=== PATIENT | female | born 1960 | race Hispanic/Latino ===

== ENCOUNTER 2016-11-11 13:58 | Emergency (ER) | payer MEDICARE ==
[2016-11-11 13:58] VITALS: BMI 28.1
[2016-11-11 14:07] VITALS: BP 140/82; PULSE 90; RESP 18; TEMP 98.8; O2SAT 99
--- NOTE | 2016-11-11 14:47 | ED PDOC ---
HPI: Psych/Substance Abuse Time Seen by Provider: 11/11/16 14:22 Chief Complaint (Nursing): Psychiatric Evaluation Chief Complaint (Provider): Psychiatric Evaluation History Per: Patient History/Exam Limitations: no limitations Onset/Duration Of Symptoms: Hrs Current Symptoms Are (Timing): Still Present Additional Complaint(s): 55 y/o female who was brought to the emergency department via EMS under [place] Police custody. As per history from Police, patient went to the Police Department to file a noise complaint but when told she was not able to file the complaint, she became angry and kicked the [place] [employer]. Denies abdominal pain , auditory hallucinations, suicidal/homicidal ideation or any further complaints. Past Medical History Reviewed: Historical Data, Nursing Documentation, Vital Signs Vital Signs: Last Vital Signs Temp 98.8 F 11/11/16 14:05 Pulse 90 11/11/16 14:05 Resp 18 11/11/16 14:05 BP 140/82 11/11/16 14:05 Pulse Ox 99 11/11/16 14:05 - Medical History PMH: Anxiety, Depression Denies: Diabetes (pre-diabetes), Hepatitis, HIV, HTN, Seizures, Sexually Transmitted Disease - Surgical History Surgical History: No Surg Hx - Family History Family History: States: Unknown Family Hx - Immunization History Hx Tetanus Toxoid Vaccination: No Hx Influenza Vaccination: No Hx Pneumococcal Vaccination: No - Home Medications Home Medications: Ambulatory Orders Medication Instructions Recorded Benadryl 50 mg HS 04/08/14 Celexa 20 mg DAILY 04/08/14 Ondansetron ODT [Zofran ODT] 4 mg PO Q6 PRN #10 odt 05/23/16 - Allergies Allergies/Adverse Reactions: Allergies Allergy/AdvReac Type Severity Reaction Status Date / Time No Known Allergies Allergy Verified 03/06/16 17:15 Review of Systems ROS Statement: Except As Marked, All Systems Reviewed And Found Negative Gastrointestinal: Negative for: Abdominal Pain Psych: Negative for: Suicidal ideation (or homicidal), Other (auditory hallucinations) Physical Exam - Reviewed Nursing Documentation Reviewed: Yes Vital Signs Reviewed: Yes - Physical Exam Appears: Positive for: Non-toxic, No Acute Distress Head Exam: Positive for: ATRAUMATIC, NORMOCEPHALIC Skin: Positive for: Normal Color, Warm, Dry Eye Exam: Positive for: Normal appearance. Negative for: Conjunctival injection Neck: Positive for: Normal, Supple Cardiovascular/Chest: Positive for: Regular Rate, Rhythm. Negative for: Murmur Respiratory: Positive for: Normal Breath Sounds. Negative for: Accessory Muscle Use, Respiratory Distress Gastrointestinal/Abdominal: Positive for: Normal Exam, Soft. Negative for: Tenderness Extremity: Positive for: Normal ROM. Negative for: Pedal Edema, Swelling Neurologic/Psych: Positive for: Alert, Oriented - ECG O2 Sat by Pulse Oximetry: 99 (RA) Pulse Ox Interpretation: Normal Medical Decision Making Medical Decision Making: Time: 14:22 Initial plan: --Medical Clearance Time: 14:41 Upon provider reevaluation patient is medically stable, and requires no further treatment in the ED at this time. Patient will be discharged home. Counseling was provided and all questions were answered. Scribe Attestation: Documented by Michelle Jeffries, acting as a scribe for Angie Portillo PA-C. Provider Scribe Attestation: All medical record entries made by the Scribe were at my direction and personally dictated by me. I have reviewed the chart and agree that the record accurately reflects my personal performance of the history, physical exam, medical decision making, and the department course for this patient. I have also personally directed, reviewed, and agree with the discharge instructions and disposition. Disposition - Clinical Impression Clinical Impression: Schizophrenia - Disposition Referrals: [facility] [Outside] Disposition: Discharged/Transfer to Law Enforcement Disposition Time: 14:57 Condition: STABLE Additional Instructions: Pt is medically and psychiatrically cleared for incarceration. Instructions: Schizophrenia (ED)
== END 2016-11-11 14:58 ==
LOC: H.ER 13:58
DX: F20.9 Schizophrenia, unspecified (principal)

== ENCOUNTER 2016-11-26 16:22 | Observation (INO) | payer MEDICARE ==
[2016-11-26 16:23] VITALS: BMI 28.1
--- NOTE | 2016-11-26 17:42 | ED PDOC ---
HPI: Psych/Substance Abuse Time Seen by Provider: 11/26/16 16:51 Chief Complaint (Nursing): Psychiatric Evaluation Chief Complaint (Provider): crisis eval History Per: Patient, EMS Additional Complaint(s): Patient arrives via ambulance for crisis evaluation. Police were called after patient was found to be dumping cooking oil outside of her neighbor's door. She has been seen in ED before and has history of schizophrenia. Upon arrival she denies any suicidal or homicidal ideation and is not sure why she is here in the emergency department. She also denies auditory or visual hallucinations. Patient states that she takes Celexa and BuSpar daily and is compliant with her meds. Patient also states that she has several lawsuits pending secondary to noise complaints against her neighbors and she is not sure if the neighbors called the police because of these pending lawsuits. Patient also states that she has had left upper quadrant abdominal pain for about 2 weeks. Patient states prior to 2 weeks ago she's had pain in same area in the past. No associated nausea, vomiting, diarrhea or constipation, no fever or chills, no associated chest pain, shortness of breath or dyspnea on exertion, no cough. Past Medical History Reviewed: Historical Data, Nursing Documentation, Vital Signs Vital Signs: Last Vital Signs Temp 98.0 F 11/26/16 16:26 Pulse 90 11/26/16 16:26 Resp 16 11/26/16 16:26 BP 104/71 11/26/16 16:26 Pulse Ox 99 11/26/16 16:26 - Medical History PMH: Anxiety, Depression, Schizophrenia - Surgical History Surgical History: Tonsillectomy Other surgeries: right knee surgery - Family History Family History: States: No Known Family Hx - Living Arrangements Living Arrangements: Alone - Social History Current smoker - smoking cessation education provided: No Alcohol: None Drugs: Denies - Immunization History Hx Tetanus Toxoid Vaccination: No Hx Influenza Vaccination: No Hx Pneumococcal Vaccination: No - Home Medications Home Medications: Ambulatory Orders Medication Instructions Recorded Benadryl 50 mg HS 04/08/14 Celexa 20 mg DAILY 04/08/14 Ondansetron ODT [Zofran ODT] 4 mg PO Q6 PRN #10 odt 05/23/16 - Allergies Allergies/Adverse Reactions: Allergies Allergy/AdvReac Type Severity Reaction Status Date / Time trazodone AdvReac NAUSEA Verified 11/26/16 16:25 Review of Systems ROS Statement: Except As Marked, All Systems Reviewed And Found Negative Constitutional: Negative for: Fever, Chills Cardiovascular: Negative for: Chest Pain, Palpitations Respiratory: Negative for: Cough Gastrointestinal: Positive for: Abdominal Pain (LUQ pain for 2 weeks). Negative for: Nausea, Vomiting Genitourinary Female: Negative for: Dysuria Psych: Positive for: Other (Crisis evaluation, sent by [place] Police and EMS , not under arrest) Physical Exam - Reviewed Nursing Documentation Reviewed: Yes Vital Signs Reviewed: Yes - Physical Exam Appears: Positive for: Well, Non-toxic, No Acute Distress Skin: Negative for: Rash Cardiovascular/Chest: Positive for: Regular Rate, Rhythm Respiratory: Positive for: Normal Breath Sounds Gastrointestinal/Abdominal: Positive for: Normal Exam, Soft. Negative for: Tenderness, Mass, Distended, Guarding, Rebound Back: Negative for: L CVA Tenderness, R CVA Tenderness Extremity: Positive for: Normal ROM. Negative for: Pedal Edema Neurologic/Psych: Positive for: Alert, Oriented, Mood/Affect (Anxious) - Laboratory Results Result Diagrams: 11/26/16 18:12 11/26/16 18:12 Urine POC: Negative Urine dip results: Negative for: Leukocyte Esterase, Blood, Nitrate, Ketones, Glucose, Bilirubin, Protein - ECG Interpretation Of ECG: Normal sinus rhythm 66 bpm, no acute finding, reviewed by ALLAN and ED attending. O2 Sat by Pulse Oximetry: 99 Pulse Ox Interpretation: Normal - Other Rad bedside chest X-Ray: Interpreted by Me, Viewed By Me X-Ray Interpretation: no acute finding Medical Decision Making Medical Decision Makin-year-old female here for crisis evaluation. Plan: Labs EKG Chest x-ray Crisis evaluation 1:1 observation Disposition - Clinical Impression Clinical Impression: Schizophrenia - Patient ED Disposition Is Patient to be Admitted: Transfer of Care - Disposition Disposition: Transfer of Care Disposition Time: 20:00 Condition: STABLE Patient Signed Over To: Fredrick Crowley Handoff Comments: Case was signed out to ALLAN Crowley pending crisis evaluation and final disposition Results - Lab Results Lab Results: 11/26/16 11/26/16 18:14 18:12 WBC 5.1 RBC 4.84 Hgb 12.8 Hct 39.3 MCV 81.2 MCH 26.4 L MCHC 32.6 L RDW 13.9 Plt Count 286 MPV 9.6 Neut % (Auto) 50.3 Lymph % (Auto) 37.2 [place] % (Auto) 9.3 Eos % (Auto) 2.4 Baso % (Auto) 0.8 Neut # 2.6 Lymph # 1.9 [place] # 0.5 Eos # 0.1 Baso # 0.0 Sodium 145 Potassium 4.5 Chloride 106 Carbon Dioxide 27 Anion Gap 17 BUN 16 Creatinine 0.7 Est GFR ( Amer) > 60 Est GFR (Non-Af Amer) > 60 Random Glucose 80 Calcium 9.4 Total Bilirubin 0.5 AST 33 ALT 34 Alkaline Phosphatase 76 Total Protein 7.5 Albumin 4.2 Globulin 3.3 Albumin/Globulin Ratio 1.3 Urine Color Yellow Urine Clarity Clear Urine pH 6.0 Ur Specific [place] 1.024 Urine Protein Negative Urine Glucose (UA) Neg Urine Ketones Trace Urine Blood Small Urine Nitrate Negative Urine Bilirubin Negative Urine Urobilinogen 0.2-1.0 Ur Leukocyte Esterase Neg Urine RBC (Auto) 1 Urine Microscopic WBC 1 Ur Squamous Epith Cells 1 Urine Opiates Screen Negative Urine Methadone Screen Negative Ur Barbiturates Screen Negative Ur Phencyclidine Scrn Negative Ur Amphetamines Screen Negative U Benzodiazepines Scrn Negative U Oth Cocaine Metabols Negative U Cannabinoids Screen Negative Alcohol, Quantitative < 10
[2016-11-26 18:28] LABS: BASO % 0.8 % (0.0-2.0); EOS # 0.1 K/uL (0.0-0.7); EOS % 2.4 % (0.0-4.0); HEMATOCRIT 39.3 % (34.0-47.0); LYMPH # 1.9 K/uL (1.0-4.3); LYMPH % 37.2 % (20.0-40.0); MEAN CELL VOLUME 81.2 fl (81.0-99.0); MEAN CORPUSCULAR HEMOGLOBIN 26.4 pg (27.0-31.0); MEAN CORPUSCULAR HGB CONC 32.6 g/dL (33.0-37.0); MEAN PLATELET VOLUME 9.6 fl (7.2-11.7); MONO # 0.5 K/uL (0.0-0.8); MONO % 9.3 % (0.0-10.0); NEUT # 2.6 K/uL (1.8-7.0); NEUT % 50.3 % (50.0-75.0); NRBC % 0.1 % (0.0-0.0); RED CELL DISTRIBUTION WIDTH 13.9 % (11.5-14.5); WHITE BLOOD COUNT 5.1 K/uL (4.8-10.8)
[2016-11-26 18:29] LABS: ALB/GLOB RATIO 1.3 (1.0-2.1); ALCOHOL SERUM < 10 mg/dl (0-10); ALKALINE PHOSPHATASE 76 U/L (38-126); ALT/SGPT 34 U/L (9-52); AST/SGOT 33 U/L (14-36); BILIRUBIN,TOTAL 0.5 mg/dl (0.2-1.3); BLOOD UREA NITROGEN 16 mg/dl (7-17); CALCIUM 9.4 mg/dL (8.4-10.2); CARBON DIOXIDE 27 mmol/L (22-30); CHLORIDE 106 mmol/L (98-107); GFR AFRICAN-AMERICAN > 60; GLUCOSE,RANDOM 80 mg/dL (65-105); POTASSIUM 4.5 MMOL/L (3.6-5.0); SODIUM 145 mmol/l (132-148); TOTAL PROTEIN 7.5 G/DL (6.3-8.2)
[2016-11-26 18:33] LABS: RBC URINE 1 /hpf (0-3); URINE BILIRUBIN NEGATIVE (NEGATIVE); URINE BLOOD SMALL (NEGATIVE); URINE COLOR YELLOW (YELLOW); URINE GLUCOSE (UA) NEG (Normal); URINE KETONE TRACE mg/dL (NEGATIVE); URINE LEUKOCYTE ESTERASE NEG Leu/uL (Negative); URINE PROTEIN NEGATIVE (NEGATIVE); URINE UROBILINOGEN 0.2-1.0 mg/dL (0.2-1.0); WBC URINE 1 /hpf (0-5)
--- NOTE | 2016-11-26 21:55 | ED PDOC ---
- Laboratory Results Result Diagrams: 11/26/16 18:12 11/26/16 18:12 Urine POC: Negative - ECG O2 Sat by Pulse Oximetry: 99 - Progress ED Course And Treament: Seen by Crisis. CXR: no acute disease noted. Patient medically cleared for psychiatric evaluation by [facility]. Seen by [facility] screener. Patient to be transferred to [facility] for psych eval. Psych salesperson handbags at [facility]: Dr. Dukes. Disposition - Clinical Impression Clinical Impression: Schizophrenia - POA Present On Arrival: None - Disposition Disposition: Transfer of Care Disposition Time: 06:00 Condition: FAIR Patient Signed Over To: Edison Townsend Handoff Comments: PENDING BED FOR [facility] TRANSFER
--- NOTE | 2016-11-27 | ED PDOC ---
- Laboratory Results Result Diagrams: 11/26/16 18:12 11/26/16 18:12 Urine POC: Negative - ECG O2 Sat by Pulse Oximetry: 99 Medical Decision Making Medical Decision Making: Patient s/o from Dr. Faith at 1500 pending [facility] screening. Patient is calm and relaxed in bed and s/o to Dr. Townsend at 0000 pending [facility] screening. Disposition - Clinical Impression Clinical Impression: Schizophrenia - POA Present On Arrival: None - Disposition Disposition: Transfer of Care Disposition Time: 00:00 Condition: FAIR Patient Signed Over To: Edison Townsend Handoff Comments: pending [facility] screening
--- NOTE | 2016-11-27 02:59 | ED PDOC ---
- Laboratory Results Result Diagrams: 11/26/16 18:12 11/26/16 18:12 <Fredrick Crowley - Last Filed: 11/27/16 05:33> - Laboratory Results Result Diagrams: 11/26/16 18:12 11/26/16 18:12 Urine POC: Negative - ECG O2 Sat by Pulse Oximetry: 99 <Edison Townsend - Last Filed: 11/27/16 06:11> Medical Decision Making <Fredrick Crowley - Last Filed: 11/27/16 05:33> <Edison Townsend - Last Filed: 11/27/16 06:11> Medical Decision Making: Patient s/o from Giovana Crowley PA-C at 0600 pending [facility] screening. Patient is stable on re-evaluation. Patient s/o to Dr. Soria at 0700 pending bed availability at [facility]. Scribe Attestation: Documented by Shahnaz Brown acting as a scribe for Edison Townsend MD. Provider Scribe Attestation: All medical record entries made by the Scribe were at my direction and personally dictated by me. I have reviewed the chart and agree that the record accurately reflects my personal performance of the history, physical exam, medical decision making, and the department course for this patient. I have also personally directed, reviewed, and agree with the discharge instructions and disposition. (Edison Townsend) Disposition - POA Present On Arrival: None - Disposition Disposition: Transfer of Care Disposition Time: 06:00 Patient Signed Over To: Edison Townsend Handoff Comments: PENDING [facility] TRANSFER <Fredrick Crowley - Last Filed: 11/27/16 05:33> - Disposition Disposition: Transfer of Care Disposition Time: 07:00 Patient Signed Over To: Rei Soria III Handoff Comments: pending [facility] screening <Edison Townsend - Last Filed: 11/27/16 06:11> - Clinical Impression Clinical Impression: Schizophrenia - Disposition Condition: FAIR
--- NOTE | 2016-11-27 07:13 | ED PDOC ---
- Laboratory Results Result Diagrams: 11/26/16 18:12 11/26/16 18:12 Urine POC: Negative - ECG O2 Sat by Pulse Oximetry: 99 Medical Decision Making Medical Decision Making: Time: 0700 Patient signed out by Dr. Townsend pending bed availability at [facility] Scribe Attestation: Documented by Lola Cuello acting as a scribe for Rei Soria DO MD Scribe Attestation: All medical record entries made by the Scribe were at my direction and personally dictated by me. I have reviewed the chart and agree that the record accurately reflects my personal performance of the history, physical exam, medical decision making, and the department course for this patient. I have also personally directed, reviewed, and agree with the discharge instructions and disposition. Disposition - Clinical Impression Clinical Impression: Schizophrenia - POA Present On Arrival: None - Disposition Disposition: Transfer of Care Disposition Time: 15:00 Condition: FAIR
[2016-11-27 08:12] VITALS: RESP 16
--- NOTE | 2016-11-27 11:21 | CARD ---
APPROVED REPORT EKG Measurement Heart [id number] <Conclusion> Normal sinus rhythm Normal ECG
--- NOTE | 2016-11-27 14:34 | ED PDOC ---
- Laboratory Results Result Diagrams: 11/26/16 18:12 11/26/16 18:12 Urine POC: Negative - ECG O2 Sat by Pulse Oximetry: 99 Medical Decision Making Medical Decision Making: Time: 1400 Patient signed out by Dr. Soria pending [facility] bed availability Scribe Attestation: Documented by Lola Cuello acting as a scribe for Dipak Faith MD MD Scribe Attestation: All medical record entries made by the Scribe were at my direction and personally dictated by me. I have reviewed the chart and agree that the record accurately reflects my personal performance of the history, physical exam, medical decision making, and the department course for this patient. I have also personally directed, reviewed, and agree with the discharge instructions and disposition. Disposition - Clinical Impression Clinical Impression: Schizophrenia - POA Present On Arrival: None - Disposition Disposition: Transfer of Care Disposition Time: 23:55 Condition: FAIR Patient Signed Over To: Edison Townsend Handoff Comments: pending [facility] bed.
--- NOTE | 2016-11-27 14:47 | RAD ---
HISTORY: clearance COMPARISON: No prior. FINDINGS: LUNGS: No active pulmonary disease. PLEURA: No significant pleural effusion identified, no pneumothorax apparent. CARDIOVASCULAR: Normal. OSSEOUS STRUCTURES: No significant abnormalities. VISUALIZED UPPER ABDOMEN: Normal. OTHER FINDINGS: None. IMPRESSION: No active disease.
--- NOTE | 2016-11-27 16:37 | CP.PCM.CON ---
History of Present Illness - History of Present Illness History of Present Illness: psychiatry consult ordered by: curt doe protocol reason: mood dysregulation cc: i want to know why i have to go to [facility] hpi: 55 yo female brought to ER by police after neighbor called with complaints. apparently pt spilled oil purposely after a conflict. pt was exhibiting signs of mood/thought disturbance and thought to need treatment. pt refused voluntary admission and was screened and accepted to [facility]. pt then asked for voluntary admission with the caveat that she could ask for discharge when she came to the floor. when seen by this appeals writer she immediately demanded that i tell her exactly why she was going to [facility] and why she has been waiting for so long. she stated "doctors know at least a week in advance when they will discharge patients and they should be able to tell me exactly when i will be going." she also stated she was here because the police believed her neighbors lies and because the screener here at at [facility] were not doing their jobs properly. she would not allow this appeals writer to discuss any other symptoms or topics. she became loud and started to talk over this appeals writer and to accuse this appeals writer of not having gone to medical school. past psych: denies previous hospitalizations, states she takes antidepressant medication. denies taking antipsychotic or mood stabilizers social history: lives alone. states she has a sister 2 hours away who she talks to on the phone frequently. pt denies any legal problems. medical history : denies substance abuse: denies use of alcohol, tobacco or other illicit substances trauma: pt would not discuss mse: alert, oriented x 3. mood is angry. affect is congruent. speech is loud and pressured at times. pt is paranoid. she denies any a/v hallucinations. she denies any si/hi. she appears to have poor insight and judgment at this time. assessment: mood disorder unspecified psychosis unspecified recommendations: prn haldol/ativan for agitation pt not appropriate for voluntary admission and to be transferred to [facility] when bed available Past Patient History - Infectious Disease Hx of Infectious Diseases: None - Past Social History Alcohol: None Drugs: Denies - CARDIAC Hx Cardiac Disorders: No Hx Hypertension: No - PULMONARY Hx Tuberculosis: No - NEUROLOGICAL HX Cerebrovascular Accident: No Hx Seizures: No - ENDOCRINE/METABOLIC Hx Diabetes Mellitus Type 2: Yes - HEMATOLOGICAL/ONCOLOGICAL Hx Human Immunodeficiency Virus (HIV): No - GENITOURINARY/GYNECOLOGICAL Hx Sexually Transmitted Disorders: No - PSYCHIATRIC Hx Anxiety: Yes Hx Depression: Yes Hx Schizophrenia: Yes - SURGICAL HISTORY Hx Tonsillectomy: Yes - ANESTHESIA Hx Anesthesia: No Meds Allergies/Adverse Reactions: Allergies Allergy/AdvReac Type Severity Reaction Status Date / Time trazodone AdvReac NAUSEA Verified 11/26/16 16:25 - Medications Medications: Current Medications Haloperidol (Haldol) 5 mg PO Q6 PRN PRN Reason: Agitation Haloperidol Lactate (Haldol) 5 mg IM Q6 PRN PRN Reason: agitation and refusing PO Lorazepam (Ativan) 2 mg PO Q6 PRN PRN Reason: Agitation Lorazepam (Ativan) 2 mg IM Q6 PRN PRN Reason: agitation and refusing PO Results - Vital Signs Recent Vital Signs: Last Vital Signs Temp 98.0 F 11/27/16 08:12 Pulse 62 11/27/16 08:12 Resp 16 11/27/16 08:12 BP 99/54 L 11/27/16 08:12 Pulse Ox 99 11/27/16 14:34 - Labs Result Diagrams: 11/26/16 18:12 11/26/16 18:12 Labs: Laboratory Results - last 24 hr 11/26/16 11/26/16 18:12 18:14 WBC 5.1 RBC 4.84 Hgb 12.8 Hct 39.3 MCV 81.2 MCH 26.4 L MCHC 32.6 L RDW 13.9 Plt Count 286 MPV 9.6 Neut % (Auto) 50.3 Lymph % (Auto) 37.2 [place] % (Auto) 9.3 Eos % (Auto) 2.4 Baso % (Auto) 0.8 Neut # 2.6 Lymph # 1.9 [place] # 0.5 Eos # 0.1 Baso # 0.0 Sodium 145 Potassium 4.5 Chloride 106 Carbon Dioxide 27 Anion Gap 17 BUN 16 Creatinine 0.7 Est GFR ( Amer) > 60 Est GFR (Non-Af Amer) > 60 Random Glucose 80 Calcium 9.4 Total Bilirubin 0.5 AST 33 ALT 34 Alkaline Phosphatase 76 Total Protein 7.5 Albumin 4.2 Globulin 3.3 Albumin/Globulin Ratio 1.3 Urine Color Yellow Urine Clarity Clear Urine pH 6.0 Ur Specific [place] 1.024 Urine Protein Negative Urine Glucose (UA) Neg Urine Ketones Trace Urine Blood Small Urine Nitrate Negative Urine Bilirubin Negative Urine Urobilinogen 0.2-1.0 Ur Leukocyte Esterase Neg Urine RBC (Auto) 1 Urine Microscopic WBC 1 Ur Squamous Epith Cells 1 Urine Opiates Screen Negative Urine Methadone Screen Negative Ur Barbiturates Screen Negative Ur Phencyclidine Scrn Negative Ur Amphetamines Screen Negative U Benzodiazepines Scrn Negative U Oth Cocaine Metabols Negative U Cannabinoids Screen Negative Alcohol, Quantitative < 10
[2016-11-28 03:52] VITALS: TEMP 98.1
[2016-11-28 03:53] VITALS: BP 120/85; PULSE 81
[2016-11-28 13:42] VITALS: O2SAT 99
== END 2016-11-28 03:40 ==
LOC: H.ER 16:22 → H.EROBSV 17:44
PROVIDERS: ADMIT Emergency Medicine; ATTEND Emergency Medicine
DX: F20.9 Schizophrenia, unspecified (principal); E11.9 Type 2 diabetes mellitus without complications; F39 Unspecified mood [affective] disorder
CPT/HCPCS: 36415; 71010; 80053; 81003; 81025; 85025; 93005; 99285; G0480

== ENCOUNTER 2017-04-20 10:37 | Inpatient (IN) | payer MEDICARE ==
[2017-04-20 10:43] VITALS: BMI 32.6
[2017-04-20] MEDS ORDERED: Lidocaine 1% Inj (20ml) IJ ONE (11:37)
[2017-04-20] MEDS ORDERED: Lidocaine 1% Inj (20ml) ONE (11:44)
[2017-04-20 12:02] LABS: BASO % 0.3 % (0.0-2.0); EOS # 0.1 K/uL (0.0-0.7); EOS % 1.6 % (0.0-4.0); HEMATOCRIT 37.7 % (34.0-47.0); LYMPH # 1.4 K/uL (1.0-4.3); LYMPH % 24.2 % (20.0-40.0); MEAN CELL VOLUME 80.5 fl (81.0-99.0); MEAN CORPUSCULAR HEMOGLOBIN 27.2 pg (27.0-31.0); MEAN CORPUSCULAR HGB CONC 33.8 g/dL (33.0-37.0); MEAN PLATELET VOLUME 9.1 fl (7.2-11.7); MONO # 0.4 K/uL (0.0-0.8); MONO % 7.4 % (0.0-10.0); NEUT # 3.8 K/uL (1.8-7.0); NEUT % 66.5 % (50.0-75.0); NRBC % 0.1 % (0.0-0.0); WHITE BLOOD COUNT 5.8 K/uL (4.8-10.8)
[2017-04-20] MEDS ORDERED: Oxycodone/Acetaminophen 5/325 mg Tab PO STA ×2 (12:03→14:56)
[2017-04-20] MEDS ORDERED: Oxycodone/Acetaminophen 5/325 mg Tab ONE ×2 (12:07→14:58)
[2017-04-20 12:14] LABS: BLOOD UREA NITROGEN 21 mg/dl (7-17); CALCIUM 9.5 mg/dL (8.4-10.2); CARBON DIOXIDE 23 mmol/L (22-30); CHLORIDE 110 mmol/L (98-107); GFR AFRICAN-AMERICAN > 60; GLUCOSE,RANDOM 91 mg/dL (65-105); POTASSIUM 4.3 MMOL/L (3.6-5.0); SODIUM 141 mmol/l (132-148)
[2017-04-20 12:15] LABS: ALB/GLOB RATIO 1.3 (1.0-2.1); ALKALINE PHOSPHATASE 60 U/L (38-126); ALT/SGPT 47 U/L (9-52); AST/SGOT 45 U/L (14-36); BILIRUBIN,TOTAL 0.5 mg/dl (0.2-1.3); TOTAL PROTEIN 7.7 G/DL (6.3-8.2)
[2017-04-20 12:16] LABS: ALCOHOL SERUM < 10 mg/dl (0-10)
--- NOTE | 2017-04-20 12:39 | RAD ---
PROCEDURE: Left Index finger radiographs. HISTORY: finger injury COMPARISON: None. TECHNIQUE: AP radiograph of the left hand, as well as spot oblique and lateral images of index finger were obtained. FINDINGS: LEFT INDEX FINGER: There is an acute mildly ventrally displaced fracture in the distal phalanx of the 2nd finger with surrounding soft tissue swelling no radiopaque foreign body. . Remainder of the left hand (as seen on the AP view) grossly intact. There is mild periarticular bone demineralization. JOINTS: Normal. OTHER FINDINGS: None. IMPRESSION: Acute mildly ventrally displaced fracture in the distal phalanx of the index finger with surrounding soft tissue swelling. No radiopaque foreign body.
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
[2017-04-20] MEDS ORDERED: DiphenhydrAMINE 50 mg/ml Inj IM PRN (17:42)
[2017-04-20] MEDS ORDERED: Magnesium Hydroxide Susp 30 ml UD PO PRN (17:42)
[2017-04-20] MEDS ORDERED: Alum-Mag Hydrox-Simethicone Susp (30 mL) PO PRN (17:42)
--- NOTE | 2017-04-20 18:36 | PCM.BM ---
<Vania Mattson - Last Filed: 04/20/17 18:33> Treatment Plan Problems - Problems identified on initial assessmt Altered Thought Process Date Initiated: 04/20/17 Time Initiated: 18:34 Assessment reference: NA Status: Active Priority: 1 Treatment assets and liabiliti Patient Assests: cooperative, resourceful, self-reliant, ADL independent, physically healthy Patient Liabilities: live alone, financial problems, relationship conflicts - Milieu Protocol Maintain good personal hygiene: daily Encourage regular showers, daily Remind patient to perform daily oral care, daily Assist patient to perform ADL's Conduct patient checks and document Observation sheet: Q15 minutes, Constant Maintain personal safety: every shift Educate patient to report safety concerns to staff, every shift Monitor environment for contraband/sharps Medication safety: Monitor for expected outcome, potential side effects: every shift, Assess barriers to learning: every shift, Assess readiness for medication education: every shift <Silvio Centeno - Last Filed: 04/23/17 10:17> Family Contact Family involvement: Patient does not wish Family/SO involvement Family contact: Patient declines to allow family contact at present Family contact name: Pt refused to contact. - Outside Agency [facility] Care involvment: Following patient during stay Agency contact name: Access [phone]. Pt accepted to [facility] and awaiting bed availbility for transfer. Discharge/Continuing Care - Education Needs Education Needs: Patient Medication, Patient Coping Skills, Patient Anger Management skills, Patient Placement options - Discharge Discharge to:: Other ([facility] involuntary)
--- NOTE | 2017-04-20 19:26 | CP.PCM.CON ---
History of Present Illness - History of Present Illness History of Present Illness: Reason for Consult: per hospital protocol CC: paranoia HPI: 56 year old female no past medical history BIBA to ER for depression and paranoia. Pt does not wish to talk about why she is here. Pt has fractured finger which is splinted. Does not want Percocet. Will give Toradol. Advised that we do not give IV pain medications for fractures. Pt admitted to psych. No other complaints. ROS: per HPI, 12 systems reviewed and negative PMH: denies PSH: denies FH: denies SH: denies tobacco, ETOH, IVDU Meds: as below Allergies: NKDA Vitals: reviewed and currently stable Exam: GEN: WDWN, alert, cooperative HEENT: NCAT, PERRL, EOMI NECK: supple, no JVD, no lymphadenopathy CARDIAC: +S1S2 RRR LUNG: CTAB No WRR ABD: SOFT NT ND BSX4 NO MASSES NO HSM EXT: +pedal pulses, equal strength NEURO: AAOx3 SKIN warm, dry PSYCH normal mood, normal affect Labs: 04/20/17 11:42 04/20/17 11:42 Assessment and Plan: 56 year old female no past medical history BIBA to ER for depression and paranoia. Pt does not wish to talk about why she is here. Pt has fractured finger which is splinted. Does not want Percocet. Will give Toradol. Advised that we do not give IV pain medications for fractures. Pt admitted to psych. No other complaints. Paranoia Management per psych Fractured Finger splinted Toradol for pain Past Patient History - Infectious Disease Hx of Infectious Diseases: None - Past Social History Smoking Status: Never Smoked - CARDIAC Hx Cardiac Disorders: No Hx Hypertension: No - PULMONARY Hx Respiratory Disorders: No Hx Tuberculosis: No - NEUROLOGICAL Hx Neurological Disorder: No Hx Seizures: No - HEENT Hx HEENT Problems: No - RENAL Hx Chronic Kidney Disease: No - ENDOCRINE/METABOLIC Hx Diabetes Mellitus Type 2: Yes - HEMATOLOGICAL/ONCOLOGICAL Hx Blood Disorders: No Hx Human Immunodeficiency Virus (HIV): No - INTEGUMENTARY Hx Dermatological Problems: No - MUSCULOSKELETAL/RHEUMATOLOGICAL Hx Musculoskeletal Disorders: No - GASTROINTESTINAL Hx Gastrointestinal Disorders: No - GENITOURINARY/GYNECOLOGICAL Hx Genitourinary Disorders: No Hx Sexually Transmitted Disorders: No - PSYCHIATRIC Hx Physical Abuse: No Hx Sexual Abuse: No Hx Substance Use: No - SURGICAL HISTORY Hx Surgeries: No Hx Tonsillectomy: Yes - ANESTHESIA Hx Anesthesia: No Meds Allergies/Adverse Reactions: Allergies Allergy/AdvReac Type Severity Reaction Status Date / Time trazodone AdvReac NAUSEA Verified 04/20/17 14:53 - Medications Medications: Current Medications Acetaminophen (Tylenol 325mg Tab) 650 mg PO Q4 PRN PRN Reason: Pain, moderate (4-7) Al Hydrox/Mg Hydrox/Simethicone (Maalox Plus 30 Ml) 30 ml PO Q4 PRN PRN Reason: Dyspepsia Cephalexin Monohydrate (Keflex) 500 mg PO Q8 IFEANYI Diphenhydramine HCl (Benadryl) 50 mg IM Q6 PRN PRN Reason: Extrapyramidal S/S Unable PO Diphenhydramine HCl (Benadryl) 50 mg PO Q6 PRN PRN Reason: Extrapyramidal Symptoms Haloperidol (Haldol) 5 mg PO Q4 PRN PRN Reason: Agitation Haloperidol Lactate (Haldol) 5 mg IM Q4 PRN PRN Reason: Agitation, Unable to Take PO Lorazepam (Ativan) 2 mg IM Q4 PRN PRN Reason: Anxiety/Agitation,Unable PO Lorazepam (Ativan) 2 mg PO Q4 PRN PRN Reason: Anxiety/Agitation Magnesium Hydroxide (Milk Of Magnesia) 30 ml PO HS PRN PRN Reason: Constipation Results - Vital Signs Recent Vital Signs: Last Vital Signs Temp 98.9 F 04/20/17 15:14 Pulse 88 04/20/17 17:11 Resp 18 04/20/17 17:11 BP 128/69 04/20/17 17:11 Pulse Ox 99 04/20/17 17:11 - Labs Result Diagrams: 04/20/17 11:42 04/20/17 11:42
[2017-04-20] MEDS ORDERED: Oxycodone/Acetaminophen 5/325 mg Tab PO PRN (19:31)
[2017-04-21 08:27] LABS: T4 10.2 ug/dl (5.5-11.0)
[2017-04-21 08:41] LABS: THYROID STIMULATING HORMONE 3.59 mIU/ML (0.46-4.68)
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
[2017-04-21] MEDS: Risperidone M TAB 2 MG PO SCH ×2 (17:52→21:45)
[2017-04-21 22:42] LABS: RBC URINE 1 /hpf (0-3); URINE BILIRUBIN NEGATIVE (NEGATIVE); URINE BLOOD NEGATIVE (NEGATIVE); URINE COLOR YELLOW (YELLOW); URINE GLUCOSE (UA) NEG (Normal); URINE KETONE NEGATIVE (NEGATIVE); URINE LEUKOCYTE ESTERASE NEG Leu/uL (Negative); URINE PROTEIN NEGATIVE (NEGATIVE); URINE UROBILINOGEN 0.2-1.0 mg/dL (0.2-1.0); WBC URINE 4 /hpf (0-5)
[2017-04-22] MEDS: Risperidone M TAB 2 MG PO SCH ×2 (09:13→21:32)
--- NOTE | 2017-04-22 09:43 | PCM.PYCHPN ---
Psychiatric Progress Note - Psychiatric Progress Note Patient seen today, length of contact: discussed with team Patient Chief Complaint: "did i get accepted at [facility] [place]?" Problems Identified/Issues Discussed: pt refusing to take risperdal as a split dose. pt threatening to marifer treatment team members over a variety of things. she is intrusive at times. she has been accepted to [facility] for involuntary hospitalization. Medication Change: Yes (change risperdal to hs dosing) Medical Record Reviewed: Yes Mental Status Examination - Cognitive Function Orientation: Person, Place, Situation, Time Memory: Intact Attention: WNL Concentration: WNL Association: Loose Fund of Knowledge: WN Decription of patient's judgement and insights: poor - Mood Mood: Anxious - Affect Affect: Other (odd/intense affect) - Speech Speech: Appropriate - Formal Thought Process Formal Thought Process: Delusions, Paranoia Psychotic Thoughts and Behaviors: pt expressing paranoid delusions about police, others in the community. - Suicidal Ideation Suicidal Ideation: No - Homicidal Ideation Homicidal Ideation: No Goal/Treatment Plan - Goal/Treatment Plan Need for Continued Stay: Remain at risks for inpatient hospitalization, Severe functional impairment Progress Toward Problem(s) and Goals/Treatment Plan: schizophrenia, paranoid continue with current treatment adjust medications- will dc bid risperdal and change to hs disposition planning- accepted for [facility] [place] Estimated Date of D/C: 04/23/17
[2017-04-23 08:38] VITALS: O2SAT 100
--- NOTE | 2017-04-23 10:51 | PCM.PYCHPN ---
Psychiatric Progress Note - Psychiatric Progress Note Patient seen today, length of contact: in treatment team Patient Chief Complaint: "you are a horrible doctor and you shouldn't be treating humans" Problems Identified/Issues Discussed: pt intrusive, loud and paranoid. she comes to team and states she won't "engage in chit chat" and then starts to accuse team of lying to her and purposely not telling her when she is to transfer to [facility]. she is accusing this writer editor of "being happy doing this to me" she has told this writer editor he is not treating her fairly because he is "japanese...and i don't ever get good treatment from italians" pt is cursing at her peers and staff and targets another female peer on the unit, calling her a "whore" she takes her medications but is refusing any changes. Medication Change: No ( ) Medical Record Reviewed: Yes Mental Status Examination - Cognitive Function Orientation: Person, Place, Situation, Time Memory: Intact Attention: WNL Concentration: WNL Association: Loose Fund of Knowledge: WNL Decription of patient's judgement and insights: poor i/j - Mood Mood: Anxious, Other (angry) - Affect Affect: Other (odd/intense affect) - Speech Speech: Appropriate, Loud, Pressured - Formal Thought Process Formal Thought Process: Delusions, Paranoia Psychotic Thoughts and Behaviors: pt expressing paranoid delusions about police, others in the community and people in the hospital - Suicidal Ideation Suicidal Ideation: No - Homicidal Ideation Homicidal Ideation: No Goal/Treatment Plan - Goal/Treatment Plan Need for Continued Stay: Remain at risks for inpatient hospitalization, Severe functional impairment Progress Toward Problem(s) and Goals/Treatment Plan: schizophrenia, paranoid continue with current treatment continue current medications disposition planning- accepted [place] [facility] Estimated Date of D/C: 04/23/17
[2017-04-23] MEDS: Risperidone M TAB 2 MG PO SCH (21:11)
[2017-04-24 09:47] VITALS: RESP 18
[2017-04-24 16:47] VITALS: BP 116/61; PULSE 74; TEMP 97
--- NOTE | 2017-04-24 18:22 | PCM.PYCHPN ---
Psychiatric Progress Note - Psychiatric Progress Note Patient seen today, length of contact: in treatment team Patient Chief Complaint: i have been here five days why do i need to wait for bed in [facility] i am five Problems Identified/Issues Discussed: alteration in thought process Medical Problems: per chart Diagnostic Results: per psychiatry-pt has been screened and is pending placement at [facility] per medicine per nursing per perinatal social worker DSM 5 Symptoms Update: paranoia psychosis Medication Change: No ( ) Medical Record Reviewed: Yes Consults ordered or reviewed: hospitalist Mental Status Examination - Cognitive Function Orientation: Person, Place, Situation, Time Memory: Intact Attention: WNL Concentration: WNL Association: Loose Fund of Knowledge: WN Decription of patient's judgement and insights: poor - Mood Mood: Anxious, Other (angry) - Affect Affect: Other (odd/intense affect) Additional comments: labile irritable - Speech Speech: Loud, Pressured - Formal Thought Process Formal Thought Process: Delusions, Paranoia - Suicidal Ideation Suicidal Ideation: No - Homicidal Ideation Homicidal Ideation: No Goal/Treatment Plan - Goal/Treatment Plan Need for Continued Stay: Remain at risks for inpatient hospitalization, Severe functional impairment Progress Toward Problem(s) and Goals/Treatment Plan: inpt milieu pending placement [facility] has been screened v/s and clinical observation per protocol and per status pending transfer to [facility] involuntary Estimated Date of D/C: 04/23/17 - Smoking Cessation Smoking Cessation Initiated: No Reason for not providing: defers
--- NOTE | 2017-04-24 20:43 | CP.PCM.PN ---
Subjective - Date & Time of Evaluation Date of Evaluation: 04/24/17 Time of Evaluation: 20:40 - Subjective Subjective: Screening CXR examined. No acute findings. Patient has no complaints of any respiratory symptoms. Objective - Vital Signs/Intake and Output Vital Signs (last 24 hours): Temp Pulse Resp BP Pulse Ox 97.0 F L 74 18 116/61 100 04/24/17 16:46 04/24/17 16:46 04/24/17 16:46 04/24/17 16:46 04/23/17 16:46 - Medications Medications: Current Medications Acetaminophen (Tylenol 325mg Tab) 650 mg PO Q4 PRN PRN Reason: Pain, Mild (1-3) Last Admin: 04/22/17 14:32 Dose: 650 mg Al Hydrox/Mg Hydrox/Simethicone (Maalox Plus 30 Ml) 30 ml PO Q4 PRN PRN Reason: Dyspepsia Buspirone HCl (Buspar) 5 mg PO HS [facility] Last Admin: 04/23/17 21:11 Dose: 5 mg Cephalexin Monohydrate (Keflex) 500 mg PO Q8 IFEANYI Last Admin: 04/24/17 18:30 Dose: 500 mg Citalopram Hydrobromide (Celexa) 20 mg PO HS [facility] Last Admin: 04/23/17 21:11 Dose: 20 mg Diphenhydramine HCl (Benadryl) 50 mg IM Q6 PRN PRN Reason: Extrapyramidal S/S Unable PO Last Admin: 04/24/17 07:05 Dose: 50 mg Diphenhydramine HCl (Benadryl) 50 mg PO Q6 PRN PRN Reason: Extrapyramidal Symptoms Last Admin: 04/24/17 07:05 Dose: 50 mg Diphenhydramine HCl (Benadryl) 50 mg PO HS PRN PRN Reason: Sleep Haloperidol (Haldol) 5 mg PO Q4 PRN PRN Reason: Agitation Haloperidol Lactate (Haldol) 5 mg IM Q4 PRN PRN Reason: Agitation, Unable to Take PO Last Admin: 04/24/17 07:05 Dose: 5 mg Ketorolac Tromethamine (Toradol) 10 mg PO Q6 PRN PRN Reason: Pain, moderate (4-7) Last Admin: 04/24/17 09:41 Dose: 10 mg Lorazepam (Ativan) 2 mg IM Q4 PRN PRN Reason: Anxiety/Agitation,Unable PO Last Admin: 04/24/17 07:04 Dose: 2 mg Lorazepam (Ativan) 2 mg PO Q4 PRN PRN Reason: Anxiety/Agitation Magnesium Hydroxide (Milk Of Magnesia) 30 ml PO HS PRN PRN Reason: Constipation Risperidone (Risperdal M-Tab) 6 mg PO HS [facility] Last Admin: 04/23/17 21:11 Dose: 6 mg
[2017-04-24] MEDS: Risperidone M TAB 2 MG PO SCH (21:05)
--- NOTE | 2017-04-25 09:11 | RAD ---
HISTORY: for [facility] voluntary commitment COMPARISON: 11/26/2016 FINDINGS: LUNGS: There is right basilar atelectasis. The left lung is clear. No lobar pneumonia. PLEURA: No significant pleural effusion identified, no pneumothorax apparent. CARDIOVASCULAR: Normal. OSSEOUS STRUCTURES: No significant abnormalities. VISUALIZED UPPER ABDOMEN: Normal. OTHER FINDINGS: None. IMPRESSION: No active pulmonary disease.
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
== END 2017-04-24 22:35 | DRG 885 ==
LOC: H.ER 10:37 → H.ERHOLD 14:19 → H.PSYCH 17:41
PROVIDERS: ADMIT Psychiatry & Neurology Psychiatry; ATTEND Psychiatry & Neurology Psychiatry
PROC: GZHZZZZ Group Psychotherapy (ICD-10-PCS; principal; 2017-04-20)
PROC: 0HQGXZZ Repair Left Hand Skin, External Approach (ICD-10-PCS; 2017-04-20)
PROC: 3E0234Z Introduction of Serum, Toxoid and Vaccine into Muscle, Percutaneous Approach (ICD-10-PCS; 2017-04-20)
PROC: GZ58ZZZ Individual Psychotherapy, Cognitive-Behavioral (ICD-10-PCS; 2017-04-21)
DX: F20.0 Paranoid schizophrenia (principal); E11.9 Type 2 diabetes mellitus without complications; S62.638A Displaced fracture of distal phalanx of other finger, initial encounter for closed fracture; S61.218A Laceration without foreign body of other finger without damage to nail, initial encounter; F41.9 Anxiety disorder, unspecified; Z23 Encounter for immunization; W23.0XXA Caught, crushed, jammed, or pinched between moving objects, initial encounter; Y92.009 Unspecified place in unspecified non-institutional (private) residence as the place of occurrence of the external cause

== ENCOUNTER 2017-05-03 13:07 | Emergency (ER) | payer MEDICARE ==
[2017-05-03 13:07] VITALS: BMI 32.6
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
[2017-05-03 13:15] VITALS: BP 111/88; PULSE 99; RESP 16; TEMP 98.1; O2SAT 98
== END 2017-05-03 13:53 | disposition home or self-care (01) ==
LOC: H.ER 13:07
DX: F20.9 Schizophrenia, unspecified (principal); F41.9 Anxiety disorder, unspecified